=== PATIENT | male | born 1980 | race Caucasian/White ===

== ENCOUNTER 2022-02-17 11:42 | Emergency (ER) | payer OTHER, SELFPAY ==
[2022-02-17] VITALS (15 sets, daily range): BP systolic 108–136; BP diastolic 68–111; PULSE 75–133; RESP 12–22; TEMP 36.1; O2SAT 97–100; BMI 32.7
--- NOTE | 2022-02-17 12:39 | ED.ARRPALP ---
HPI - Arrhythmia/Palpitations General Chief Complaint: Arrhythmia/Palpitations Stated Complaint: lightheaded/heart racing/A-fib Time Seen by Provider: 02/17/22 12:17 History of Present Illness HPI narrative: This 41-year-old male comes in reporting some lightheadedness and palpitations that began last evening. He states that he has a history of SVT and had an ablation in the distant past. He does not report any chest pain, shortness of breath, or nausea or vomiting. He does not have any diaphoresis. He states that he is deconditioned and feels that his heart causes palpitations when he increases activity. He has had a stress test that was normal several years ago. Related Data Home Medications Medication Instructions Recorded Confirmed metoprolol succinate 25 mg mg PO 02/17/22 tablet,extended release 24 hr sertraline 50 mg tablet mg 02/17/22 Previous Rx's Medication Instructions Recorded apixaban 5 mg (74 tabs) tablets in See Rx Instructions .ROUTE 02/17/22 a dose pack ([employer] DVT-PE Treat .COMPLEX #74 ea 30D Start) carvedilol 3.125 mg tablet (Coreg) 3.125 mg PO BID #60 tab 02/17/22 Allergies Allergy/AdvReac Type Severity Reaction Status Date / Time No Known Drug Allergies Allergy Verified 02/17/22 11:58 Review of Systems Status of ROS: Reports: 10 or more systems reviewed and unremarkable except as noted in History and below Narrative: Constitutional: No fevers, no weight gain or loss. Eyes: No discharge. No vision changes. HENT: No congestion, no sore throat, no ear pain. Cardiovascular: No chest pain. Palpitations with lightheadedness. Respiratory: No shortness of breath, no wheezes, no cough. Gastrointestinal: No abdominal pain, no vomiting, no diarrhea. Genitourinary: No dysuria, no hematuria. Musculoskeletal: Normal range of motion. Skin: No rashes, no pruritis. Neurological: No dizziness, weakness, sensory change, speech change. Endo/Heme/Allergies: No bruising or bleeding. No polydipsia. Pysch: no suicidality, no anxiety, no insomnia. All other systems reviewed and are negative. [facility] Medical History (Updated 02/17/22 @ 14:26 by Bev Zhang MD) Arrhythmia Surgical History (Updated 02/17/22 @ 12:15 by Vero Jacobs RN) History of radiofrequency ablation procedure for cardiac arrhythmia Social History Smoking Status: Never smoker Do you use any of these nicotine containing products: None How often do you have a drink containing alcohol: 2-3 times a week How often do you have six or more drinks on one occasion: Weekly AUDIT-C Alcohol total score: 6 Non-prescribed substance use: denies use Exam Narrative: Exam Narrative: Constitutional: Well-developed, well-nourished, no acute distress. HEENT: Normocephalic, atraumatic. Neck: Normal range of motion. Nontender. Supple. Heart: Irregular. No murmurs. Normal rate. Intact distal pulses. Lungs: Clear to auscultation. No chest discomfort. No wheezes, rhonchi, or rales. Abdomen: Normal bowel sounds. Nontender. No rebound tenderness. Genitalia: Deferred. Back: No midline tenderness. Normal range of motion. Extremities: Normal range of motion. No injury. Skin: Intact. No rash. Warm. No erythema or pallor. Neurologic: No altered sensation. No weakness. Alert and oriented. Psychiatric: No suicidality. No anxiety or depression. No insomnia. Nursing notes and vitals signs are reviewed. Const: Vital Signs, click to edit/add: Vital Signs - 24 hr 02/17/22 11:58 02/17/22 12:00 02/17/22 12:30 Temperature 97 F L Pulse Rate [Apical ] 125 H 133 H 82 Respiratory Rate 22 18 17 Blood Pressure [Ri ght Upper Arm] 108/94 H 114/94 H 122/111 H Pulse Oximetry 97 97 98 02/17/22 13:00 02/17/22 13:30 Temperature Pulse Rate [Apical ] 84 85 Respiratory Rate 12 12 Blood Pressure [Ri ght Upper Arm] 125/95 H 125/85 Pulse Oximetry 97 98 Course Vital Signs Vital signs: Initial Vital Signs Temperature 97 F L 02/17/22 11:58 Temperature Source Temporal Artery Scan 02/17/22 11:58 Pulse Rate 125 H 02/17/22 11:58 Pulse Rhythm 02/17/22 11:58 Respiratory Rate 22 02/17/22 11:58 Blood Pressure 108/94 H 02/17/22 11:58 Blood Pressure Mean 98 02/17/22 11:58 Blood Pressure Position Supine 02/17/22 11:58 Pulse Oximetry 97 02/17/22 11:58 Oxygen Delivery Method 02/17/22 11:58 Vital Signs Temperature 97 F L 02/17/22 11:58 Pulse Rate 125 H 02/17/22 11:58 Respiratory Rate 22 02/17/22 11:58 Blood Pressure 108/94 H 02/17/22 11:58 Pulse Oximetry 97 02/17/22 11:58 Temperature 97 F L 02/17/22 11:58 Pulse Rate 85 02/17/22 13:30 Respiratory Rate 12 02/17/22 13:30 Blood Pressure 125/85 02/17/22 13:30 Pulse Oximetry 98 02/17/22 13:30 MDM - Arrhythmia/Palpitations MDM Narrative Medical decision making narrative: This patient comes in reporting some palpitations and lightheadedness. He has had dysrhythmia in the past which was diagnosed as supraventricular tachycardia for which she received an ablation. Today he arrives with evidence of atrial fibrillation which is rate controlled. These symptoms started last evening. He is a candidate for cardioversion. An IV was established where the patient did not receive any medications as he is rate controlled. Lab results returned with normal findings. He is preferring to have cardioversion. After acquiring informed consent he received 100 mg of propofol for adequate sedation. A 1 time cardioversion dose of 150 joules was administered which brought him back to normal sinus rhythm. Dr. Richardson was present to assist in this procedure as was respiratory therapist, Marielena. The patient received an oral dose of Eliquis and a prescription for the same. Repeat EKG shows normal sinus rhythm and a rate of around 70 beats per minute. Lab Data Labs: Lab Results 02/17/22 02/17/22 02/17/22 Range/Units 12:45 12:45 12:45 WBC 8.37 (4.50-11.00) K/uL RBC 5.31 (4.30-5.90) m/uL Hgb 16.0 (13.5-17.5) gm/dL Hct 46.9 (37.0-53.0) % MCV 88 (80-100) fL MCH 30 (26-34) pg MCHC 34 (32-36) gm/dL RDW Coeff of Carmine 12.0 (11.5-15.5) % Plt Count 318 (140-440) K/uL Neut % (Auto) 63.5 (42.0-72.0) % Lymph % (Auto) 24.1 (20-44) % [place] % (Auto) 8.4 (0.0-11.0) % Eos % (Auto) 3.3 (0.0-7.0) % Baso % (Auto) 0.5 (0.0-3.0) % Neut # (Auto) 5.31 (1.7-7.0) K/uL Lymph # (Auto) 2.02 (0.90-2.90) K/uL [place] # (Auto) 0.70 (0.00-0.90) K/UL Eos # (Auto) 0.28 (0.00-0.50) K/uL Baso # (Auto) 0.04 (0.00-0.30) K/uL Abs Immat Gran (auto) 0.02 (0.00-0.30) K/uL Sodium 141 (135-149) mmol/L Potassium 4.2 (3.6-5.1) mmol/L Chloride 108 (96-114) mmol/L Carbon Dioxide 29 (20-32) mmol/L BUN 14 (5-24) mg/dL Creatinine 1.0 (0.5-1.5) mg/dL Estimated Creat Clear 118.53 Glucose 102 (60-115) mg/dL Calcium 8.9 (8.4-10.6) mg/dL Magnesium 2.1 (1.5-2.6) mg/dL POC Troponin I 0.00 L (0.01-0.04) ng/ml ECG Data Attestation: I personally reviewed and interpreted this ECG as follows: Interpretation: Atrial fibrillation. Rate is 91 beats per minute. There are no ST or T-wave abnormalities. Repeat EKG after cardioversion shows normal sinus rhythm. There are no ST or T-wave changes. Discharge Plan Discharge Clinical Impression: Atrial fibrillation Patient Disposition: Home, Self-Care Condition: Stable Instructions: A-fib (Atrial Fibrillation) (ED) Additional Instructions: Per Dr. Cuellar's discharge. Take Eliquis as prescribed. Follow up with MD or return if worsening. A prescription for a low dose of Coreg is also provided which may be helpful in preventing similar occurrences. Prescriptions: New carvedilol [Coreg] 3.125 mg tablet 3.125 mg PO BID Qty: 60 2RF Rx Instructions: must administer with a meal/food Eliquis DVT-PE Treat 30D Start 5 mg (74 tabs) tablets,dose pack See Rx Instructions .ROUTE .COMPLEX Qty: 74 0RF Rx Instructions: orally per package directions No Action metoprolol succinate 25 mg tablet extended release 24 hr PO 0RF Label Comments: TAKE 1 TABLET BY MOUTH EVERY DAY sertraline 50 mg tablet 0RF Label Comments: TAKE 1 TABLET (50 MG) BY MOUTH ONCE DAILY. Follow Up/Referrals: Brendan Lujan MD [Primary Care Provider] - Stand Alone Forms: [facility] Info Instructions
[2022-02-17 12:57] LABS: Basophils Absolute Auto 0.04 K/uL (0.00-0.30); Basophils Percent Auto 0.5 % (0.0-3.0); Eosinophils Absolute Auto 0.28 K/uL (0.00-0.50); Eosinophils Percent Auto 3.3 % (0.0-7.0); Hematocrit 46.9 % (37.0-53.0); Immature Granulocytes Abs Auto 0.02 K/uL (0.00-0.30); Lymphocytes Absolute Auto 2.02 K/uL (0.90-2.90); Lymphocytes Percent Auto 24.1 % (20-44); Mean Corpuscular HGB Conc 34 gm/dL (32-36); Mean Corpuscular Hemoglobin 30 pg (26-34); Mean Corpuscular Volume 88 fL (80-100); Monocytes Percent Auto 8.4 % (0.0-11.0); Neutrophils Absolute Auto 5.31 K/uL (1.7-7.0); Neutrophils Percent Auto 63.5 % (42.0-72.0); Platelet Count* 318 K/uL (140-440); Red Blood Count 5.31 m/uL (4.30-5.90); White Blood Count* 8.37 K/uL (4.50-11.00)
[2022-02-17 12:58] LABS: Slide Review Reflex No
[2022-02-17 13:12] LABS: Chloride* 108 mmol/L (96-114); Potassium* 4.2 mmol/L (3.6-5.1); Sodium* 141 mmol/L (135-149)
[2022-02-17 13:15] LABS: Blood Urea Nitrogen* 14 mg/dL (5-24); Carbon Dioxide* 29 mmol/L (20-32); Est. Creatinine Clearance* 118.53; Estimated Glomerular Filt Rate 98.18; Glucose* 102 mg/dL (60-115)
[2022-02-17 13:16] LABS: Calcium* 8.9 mg/dL (8.4-10.6); Magnesium* 2.1 mg/dL (1.5-2.6)
[2022-02-17] MEDS: PROPOFOL 10 MG/ML INJ 200 MG IV (14:00)
--- NOTE | 2022-02-17 14:15 | ED.NURSE ---
Cardioversion started. Dr Richardson,Dr Cuellar and Marielena RT at bedside
--- NOTE | 2022-02-17 14:16 | ED.NURSE ---
Pt cardioverted with 150J.
--- NOTE | 2022-02-17 14:20 | ED_ITS ---
HPI - Arrhythmia/Palpitations General Time Seen by Provider: 14:10 Date Seen: 02/17/22 Chief Complaint: Arrhythmia/Palpitations Stated Complaint: lightheaded/heart racing/A-fib Time Seen by Provider: 02/17/22 12:17 History of Present Illness HPI narrative: Was asked by Dr. Cuellar to provide anesthesia with propofol fall so he could perform a synchronized cardioversion on Uriel. Respiratory therapy is also present. He is on appropriate supplemental oxygen, cardiac monitoring. IV has been established. I was in attendance and delivered 100 mg of propofol IV. This provided appropriate anesthesia. Please see Dr. Cuellar's notes for cardioversion and for the full formal ED visit. Appropriate cardiac monitoring and postanesthesia care monitoring was done. Patient will be discharged as per Dr. Telles's ED note. Related Data Home Medications Medication Instructions Recorded Confirmed metoprolol succinate 25 mg mg PO 02/17/22 tablet,extended release 24 hr sertraline 50 mg tablet mg 02/17/22 Allergies Allergy/AdvReac Type Severity Reaction Status Date / Time No Known Drug Allergies Allergy Verified 02/17/22 11:58 [facility] Medical History (Updated 02/17/22 @ 14:26 by Bev Zhang MD) Arrhythmia Surgical History (Updated 02/17/22 @ 12:15 by Vero Jacobs RN) History of radiofrequency ablation procedure for cardiac arrhythmia Social History Smoking Status: Never smoker Do you use any of these nicotine containing products: None How often do you have a drink containing alcohol: 2-3 times a week How often do you have six or more drinks on one occasion: Weekly AUDIT-C Alcohol total score: 6 Non-prescribed substance use: denies use Exam Const: Vital Signs, click to edit/add: Vital Signs - 24 hr 02/17/22 11:58 Temperature 97 F L Pulse Rate [Apical ] 125 H Respiratory Rate 22 Blood Pressure [Ri ght Upper Arm] 108/94 H Pulse Oximetry 97 Course Vital Signs Vital signs: Initial Vital Signs Temperature 97 F L 02/17/22 11:58 Temperature Source Temporal Artery Scan 02/17/22 11:58 Pulse Rate 125 H 02/17/22 11:58 Pulse Rhythm 02/17/22 11:58 Respiratory Rate 22 07/11/22 11:58 Blood Pressure 108/94 H 02/17/22 11:58 Blood Pressure Mean 98 02/17/22 11:58 Blood Pressure Position Supine 02/17/22 11:58 Pulse Oximetry 97 02/17/22 11:58 Oxygen Delivery Method 02/17/22 11:58 Vital Signs Temperature 97 F L 02/17/22 11:58 Pulse Rate 125 H 02/17/22 11:58 Respiratory Rate 22 02/17/22 11:58 Blood Pressure 108/94 H 02/17/22 11:58 Pulse Oximetry 97 02/17/22 11:58 Temperature 97 F L 02/17/22 11:58 Pulse Rate 125 H 02/17/22 11:58 Respiratory Rate 22 02/17/22 11:58 Blood Pressure 108/94 H 02/17/22 11:58 Pulse Oximetry 97 02/17/22 11:58 MDM - Arrhythmia/Palpitations Lab Data Labs: Lab Results 02/17/22 02/17/22 02/17/22 Range/Units 12:45 12:45 12:45 WBC 8.37 (4.50-11.00) K/uL RBC 5.31 (4.30-5.90) m/uL Hgb 16.0 (13.5-17.5) gm/dL Hct 46.9 (37.0-53.0) % MCV 88 (80-100) fL MCH 30 (26-34) pg MCHC 34 (32-36) gm/dL RDW Coeff of Carmine 12.0 (11.5-15.5) % Plt Count 318 (140-440) K/uL Neut % (Auto) 63.5 (42.0-72.0) % Lymph % (Auto) 24.1 (20-44) % [place] % (Auto) 8.4 (0.0-11.0) % Eos % (Auto) 3.3 (0.0-7.0) % Baso % (Auto) 0.5 (0.0-3.0) % Neut # (Auto) 5.31 (1.7-7.0) K/uL Lymph # (Auto) 2.02 (0.90-2.90) K/uL [place] # (Auto) 0.70 (0.00-0.90) K/UL Eos # (Auto) 0.28 (0.00-0.50) K/uL Baso # (Auto) 0.04 (0.00-0.30) K/uL Abs Immat Gran (auto) 0.02 (0.00-0.30) K/uL Sodium 141 (135-149) mmol/L Potassium 4.2 (3.6-5.1) mmol/L Chloride 108 (96-114) mmol/L Carbon Dioxide 29 (20-32) mmol/L BUN 14 (5-24) mg/dL Creatinine 1.0 (0.5-1.5) mg/dL Estimated Creat Clear 118.53 Glucose 102 (60-115) mg/dL Calcium 8.9 (8.4-10.6) mg/dL Magnesium 2.1 (1.5-2.6) mg/dL POC Troponin I 0.00 L (0.01-0.04) ng/ml Critical Care Time Critical Care Time Critical Care Time: No Discharge Plan Discharge Clinical Impression: Atrial fibrillation Patient Disposition: Home, Self-Care Condition: Stable Additional Instructions: Per Dr. Cuellar's discharge. Prescriptions: No Action metoprolol succinate 25 mg tablet extended release 24 hr PO 0RF Label Comments: TAKE 1 TABLET BY MOUTH EVERY DAY sertraline 50 mg tablet 0RF Label Comments: TAKE 1 TABLET (50 MG) BY MOUTH ONCE DAILY. Follow Up/Referrals: Brendan Lujan MD [Primary Care Provider] - Stand Alone Forms: [facility] Info Instructions Procedures Moderate Sedation Message Please read if using moderate sedation: Anesthesia with propofol used, see HPI above for note.
--- NOTE | 2022-02-17 14:22 | ED.NURSE ---
EKG showing normal sinus.
[2022-02-17] MEDS: APIXABAN 5 MG TABLET 10 MG PO (15:10)
== END 2022-02-17 15:38 | disposition home or self-care (01) ==
PROVIDERS: Emergency Provider Emergency Medicine Emergency Medical Services; PCP Surgery
DX: I48.91 Unspecified atrial fibrillation (principal)
CPT/HCPCS: 36415; 80048; 83735; 84484; 85025; 92960; 93005; 99152; 99156; 99281; 99285; A9270; J2704

== ENCOUNTER 2022-08-25 03:31 | Emergency (ER) | payer OTHER, SELFPAY ==
[2022-08-25] VITALS (8 sets, daily range): BP systolic 111–137; BP diastolic 93–106; PULSE 72–84; RESP 20; TEMP 36.3; O2SAT 97–98; BMI 32.7
--- NOTE | 2022-08-25 03:34 | ED.GENADULT ---
HPI - General Adult General Time Seen by Provider: 03:34 Date Seen: 08/25/22 Chief complaint: Chest Pain Stated complaint: Chest Pain Time Seen by Provider: 08/25/22 03:33 Source: patient, RN notes reviewed and old records reviewed Mode of arrival: ambulatory Limitations: no limitations History of Present Illness HPI narrative: 41-year-old who presents today with chest pain. Review of prior emergency department records shows patient was seen in February 2022 and at that time had atrial fibrillation which was successfully cardioverted. Patient also reports history of ablation for SVT. He says yesterday and this morning he is having brief episodes of aching or shooting pain in the left chest. He pinpoint this just under the left pectoralis muscle. No relieving or exacerbating factors, lasts about 30 seconds. No accompanying shortness of breath, nausea, or vomiting. He has had a cough for the last couple of days but no breathing difficulty, fevers. Related Data Home Medications Medication Instructions Recorded Confirmed metoprolol succinate 25 mg mg PO 02/17/22 tablet,extended release 24 hr sertraline 50 mg tablet mg 02/17/22 Previous Rx's Medication Instructions Recorded apixaban 5 mg (74 tabs) tablets in See Rx Instructions PO .COMPLEX 02/17/22 a dose pack (Eliquis DVT-PE Treat #74 ea 30D Start) carvedilol 3.125 mg tablet (Coreg) 3.125 mg PO BID #60 tabs 02/17/22 Allergies Allergy/AdvReac Type Severity Reaction Status Date / Time No Known Drug Allergies Allergy Verified 02/17/22 11:58 [facility] Medical History (Updated 08/25/22 @ 04:35 by Reji Christianson MD) Arrhythmia Surgical History (Updated 02/17/22 @ 12:15 by Vero Jacobs RN) History of radiofrequency ablation procedure for cardiac arrhythmia Social History Smoking Status: Never smoker Do you use any of these nicotine containing products: Other Second hand tobacco smoke exposure: No How often do you have a drink containing alcohol: 2-3 times a week How often do you have six or more drinks on one occasion: Weekly AUDIT-C Alcohol total score: 6 Non-prescribed substance use: denies use service: No Exam Narrative: Exam Narrative: General: Well-developed and well-nourished, no acute distress Head: Atraumatic and normocephalic Eyes: Pupils are equal reactive, extraocular motions intact, conjunctiva clear ENT: External nose and ears are normal, posterior pharynx without erythema or exudate Neck: No midline cervical tenderness, full spontaneous range of motion the neck, trachea midline, no adenopathy Heart: Regular rate and rhythm no murmurs or thrills Lungs: Clear to auscultation bilaterally without wheezes or crackles Abdomen: Soft, nontender, nondistended with active bowel sounds Musculoskeletal: No tenderness, deformity, or edema Neurologic: Awake, alert, and oriented x3, no gross focal neurologic deficits, cranial nerves intact as tested Psych: Mood and affect are appropriate Skin: No rashes Const: Vital Signs, click to edit/add: Vital Signs - 24 hr 08/25/22 03:40 08/25/22 03:55 08/25/22 04:00 Temperature 97.4 F L Pulse Rate 75 80 Pulse Rate [Pulse Oximeter] 81 Respiratory Rate 20 Blood Pressure Blood Pressure [Le ft Upper Arm] 137/106 H Pulse Oximetry 98 98 97 Oxygen Delivery Nm thod Room Air 08/25/22 04:04 08/25/22 04:09 Temperature Pulse Rate 73 76 Pulse Rate [Pulse Oximeter] Respiratory Rate Blood Pressure 122/102 H Blood Pressure [Le ft Upper Arm] Pulse Oximetry 98 97 Oxygen Delivery Me thod Course Course Hospital Course: 3:40 a.m. patient seen and examined, prior records reviewed. Patient presents with atypical chest pain yesterday and today, last about 30 seconds and nonradiating. He can not pinpoint 1 area where he has pain and there is no tenderness there. EKG is reassuring. Labs are ordered. We did discuss that this is not typical for acute coronary syndrome, however troponin will be ordered to evaluate for this. Consider CT PE protocol but no hypoxia, tachycardia, or pleuritic chest pain, PERC negative. Reevaluation(s) Reevaluation #1: Labs independently interpreted by me are reassuring including normal troponin, negative BNP, reassuring CBC and negative CRP. Chest x-ray is negative for any acute intrathoracic findings. Patient is stable for discharge with outpatient follow-up, consider cardiology given history of cardiac dysrhythmias Time: 04:32 Vital Signs Vital signs: Initial Vital Signs Temperature 97.4 F L 08/25/22 03:40 Temperature Source Temporal Artery Scan 08/25/22 03:40 Pulse Rate 81 08/25/22 03:40 Pulse Rhythm 08/25/22 03:40 Respiratory Rate 20 08/25/22 03:40 Blood Pressure 137/106 H 08/25/22 03:40 Blood Pressure Mean 116 08/25/22 03:40 Blood Pressure Position Semi-Fowlers 08/25/22 03:40 Pulse Oximetry 98 08/25/22 03:40 Oxygen Delivery Method 08/25/22 03:40 Vital Signs Temperature 97.4 F L 08/25/22 03:40 Pulse Rate 81 08/25/22 03:40 Respiratory Rate 20 08/25/22 03:40 Blood Pressure 137/106 H 08/25/22 03:40 Pulse Oximetry 98 08/25/22 03:40 Oxygen Delivery Method 08/25/22 03:40 Temperature 97.4 F L 08/25/22 03:40 Pulse Rate 76 08/25/22 04:09 Respiratory Rate 20 08/25/22 03:40 Blood Pressure 122/102 H 08/25/22 04:09 Pulse Oximetry 97 08/25/22 04:09 Oxygen Delivery Method 08/25/22 03:40 Medical Decision Making Lab Data Labs: Lab Results 08/25/22 08/25/22 08/25/22 Range/Units 03:50 03:50 03:50 WBC 6.24 (4.50-11.00) K/uL RBC 4.78 (4.30-5.90) m/uL Hgb 14.3 (13.5-17.5) gm/dL Hct 41.2 (37.0-53.0) % MCV 86 (80-100) fL MCH 30 (26-34) pg MCHC 35 (32-36) gm/dL RDW Coeff of Carmine 11.8 (11.5-15.5) % Plt Count 321 (140-440) K/uL Neut % (Auto) 53.1 (42.0-72.0) % Lymph % (Auto) 31.1 (20-44) % [place] % (Auto) 9.1 (0.0-11.0) % Eos % (Auto) 5.3 (0.0-7.0) % Baso % (Auto) 0.8 (0.0-3.0) % Neut # (Auto) 3.31 (1.7-7.0) K/uL Lymph # (Auto) 1.94 (0.90-2.90) K/uL [place] # (Auto) 0.60 (0.00-0.90) K/UL Eos # (Auto) 0.33 (0.00-0.50) K/uL Baso # (Auto) 0.05 (0.00-0.30) K/uL Sodium 139 (135-149) mmol/L Potassium 4.0 (3.6-5.1) mmol/L Chloride 109 (96-114) mmol/L Carbon Dioxide 24 (20-32) mmol/L BUN 13 (5-24) mg/dL Creatinine 0.9 (0.5-1.5) mg/dL Estimated Creat Clear 131.71 Estimated GFR 111 ml/min Glucose 107 (60-115) mg/dL Calcium 8.3 L (8.4-10.6) mg/dL C-Reactive Protein (0.5-1.0) mg/dL NT-Pro-B Natriuret Pep 27 pg/mL POC Troponin I 0.00 L (0.01-0.04) ng/ml 08/25/22 Range/Units 03:50 WBC (4.50-11.00) K/uL RBC (4.30-5.90) m/uL Hgb (13.5-17.5) gm/dL Hct (37.0-53.0) % MCV (80-100) fL MCH (26-34) pg MCHC (32-36) gm/dL RDW Coeff of Carmine (11.5-15.5) % Plt Count (140-440) K/uL Neut % (Auto) (42.0-72.0) % Lymph % (Auto) (20-44) % [place] % (Auto) (0.0-11.0) % Eos % (Auto) (0.0-7.0) % Baso % (Auto) (0.0-3.0) % Neut # (Auto) (1.7-7.0) K/uL Lymph # (Auto) (0.90-2.90) K/uL [place] # (Auto) (0.00-0.90) K/UL Eos # (Auto) (0.00-0.50) K/uL Baso # (Auto) (0.00-0.30) K/uL Sodium (135-149) mmol/L Potassium (3.6-5.1) mmol/L Chloride (96-114) mmol/L Carbon Dioxide (20-32) mmol/L BUN (5-24) mg/dL Creatinine (0.5-1.5) mg/dL Estimated Creat Clear Estimated GFR ml/min Glucose (60-115) mg/dL Calcium (8.4-10.6) mg/dL C-Reactive Protein < 0.5 L (0.5-1.0) mg/dL NT-Pro-B Natriuret Pep pg/mL POC Troponin I (0.01-0.04) ng/ml Discharge Plan Discharge Clinical Impression: Atypical chest pain Patient Disposition: Home w/ Parent or Adult Condition: Stable Instructions: Chest Pain (DC) Additional Instructions: Activity as tolerated. Follow-up with your primary care doctor and consider Cardiology consultation as well. Activity Level: No Restrictions Discharge Diet: Regular Prescriptions: No Action metoprolol succinate 25 mg tablet extended release 24 hr PO Label Comments: TAKE 1 TABLET BY MOUTH EVERY DAY sertraline 50 mg tablet Label Comments: TAKE 1 TABLET (50 MG) BY MOUTH ONCE DAILY. carvedilol [Coreg] 3.125 mg tablet 3.125 mg PO BID Qty: 60 2RF Rx Instructions: must administer with a meal/food Eliquis DVT-PE Treat 30D Start 5 mg (74 tabs) tablets,dose pack See Rx Instructions .ROUTE .COMPLEX Qty: 74 0RF Rx Instructions: orally per package directions Follow Up/Referrals: Brendan Lujan MD [Primary Care Provider] - Stand Alone Forms: [facility] Info Instructions
--- NOTE | 2022-08-25 03:35 | CRLHL7_ITS ---
For Patients: As a result of the Century Cures Act, medical imaging exams and procedure reports are released immediately into your electronic medical record. You may view this report before your referring provider. If you have questions, please contact your health care provider. INDICATION: Chest pain. TECHNIQUE: Chest 1 views. COMPARISON: None. FINDINGS: Cardiovasculature and mediastinum: Heart size and vasculature are normal in caliber and appearance. Lungs and pleural spaces: Lungs are clear. No sign of infiltrate or mass. No sign of pleural effusion. No pneumothorax. Bones and soft tissues: No significant findings. IMPRESSION: No acute or significant findings. Dictated by Orlando Nielsen MD @ 08/25/2022 4:43:55 AM (Electronically Signed)
[2022-08-25 04:00] LABS: Basophils Absolute Auto 0.05 K/uL (0.00-0.30); Basophils Percent Auto 0.8 % (0.0-3.0); Eosinophils Absolute Auto 0.33 K/uL (0.00-0.50); Eosinophils Percent Auto 5.3 % (0.0-7.0); Hematocrit 41.2 % (37.0-53.0); Hemoglobin* 14.3 gm/dL (13.5-17.5); Immature Granulocytes Abs Auto 0.04 K/uL (0.00-0.30); Immature Granulocytes Pct Auto 0.6 %; Lymphocytes Absolute Auto 1.94 K/uL (0.90-2.90); Lymphocytes Percent Auto 31.1 % (20-44); Mean Corpuscular HGB Conc 35 gm/dL (32-36); Mean Corpuscular Hemoglobin 30 pg (26-34); Mean Corpuscular Volume 86 fL (80-100); Monocytes Percent Auto 9.1 % (0.0-11.0); Neutrophils Absolute Auto 3.31 K/uL (1.7-7.0); Neutrophils Percent Auto 53.1 % (42.0-72.0); Platelet Count* 321 K/uL (140-440); RDW Coefficient of Variation % 11.8 % (11.5-15.5); Red Blood Count 4.78 m/uL (4.30-5.90); White Blood Count* 6.24 K/uL (4.50-11.00)
[2022-08-25 04:02] LABS: Slide Review Reflex No
[2022-08-25] MEDS: 0.9 % SODIUM CHLORIDE 1000 ml 1,000 ML IV (04:09)
[2022-08-25] MEDS: KETOROLAC 15 MG/ML inj IVP (04:09)
[2022-08-25 04:14] LABS: Chloride* 109 mmol/L (96-114); Sodium* 139 mmol/L (135-149)
[2022-08-25 04:17] LABS: Blood Urea Nitrogen* 13 mg/dL (5-24); Carbon Dioxide* 24 mmol/L (20-32); Creatinine* 0.9 mg/dL (0.5-1.5); Est. Creatinine Clearance* 131.71; Estimated Glomerular Filt Rate 111 ml/min; Glucose* 107 mg/dL (60-115)
[2022-08-25 04:18] LABS: Calcium* 8.3 mg/dL (8.4-10.6)
[2022-08-25 04:27] LABS: C Reactive Protein* < 0.5 mg/dL (0.5-1.0); NT Pro B Type NatriureticPept* 27 pg/mL
== END 2022-08-25 05:01 | disposition home or self-care (01) ==
PROVIDERS: Emergency Provider Family Medicine; PCP Surgery
DX: R07.89 Other chest pain (principal)
CPT/HCPCS: 36415; 71045; 80048; 83880; 84484; 85025; 86140; 93005; 96361; 96374; 99284; 99285; J1885; J7030

== ENCOUNTER 2023-04-11 03:37 | Emergency (ER) | payer OTHER, SELFPAY ==
[2023-04-11 03:48] VITALS: BP 161/107; PULSE 80; RESP 16; TEMP 36.2; O2SAT 98; BMI 32.7
[2023-04-11 04:02] LABS: Appearance Urine Clear (Clear); Bilirubin Urine Negative (Negative); Blood Urine 3+ (Negative); Color Urine Yellow (Yellow); Glucose Urine Negative (Negative); Ketones Urine Negative (Negative); Leukocyte Esterase Urine Negative (Negative); Nitrite Urine Negative (Negative); Protein Urine Negative (Negative); Specific Gravity Urine >= 1.030 (1.000-1.030); Urobilinogen Urine 0.2 (0.2-1.0); pH Urine 5.5 (5.0-8.5)
--- NOTE | 2023-04-11 04:05 | ED_ITS ---
HPI - General Adult General Chief complaint: Flank Pain Stated complaint: pain on R front side Time Seen by Provider: 04/11/23 03:55 Source: patient and family Mode of arrival: ambulatory Limitations: no limitations History of Present Illness HPI narrative: 42-year-old male presents to the emergency department with right lower quadrant abdominal pain since about 8:00 p.m. which is 8 hours prior to arrival. No fe vers, no trauma or injury. Little bit of burning with urination also. Nausea started about a 1/2 hour ago but no payam vomiting. Symptoms initially started mildly and are more constant, not crampy or colicky. No changes in bowel habits. Pain can be reproduced with palpation, far right lower groin area and radiating into the penis. No prior history of similar symptoms. Has not tried taking any medication to help with his symptoms. No back pain. Denies prior history of abdominal surgery. Past medical history, he denies but I can see from the records that he has had a previous history of AFib. It looks like he may have had an ablation at some point as well. He is also looks like he has had a pulmonary embolism is not taking any anticoagulants. He denies use of any medications currently. He is nonsmoker, did have 4 beers last night. ROS is notable for the abdominal symptoms as above, otherwise denies times 12 systems. Related Data Allergies Allergy/AdvReac Type Severity Reaction Status Date / Time Sulfa (Sulfonamide Allergy Unknown Verified 04/11/23 03:51 Antibiotics) [facility] Medical History Arrhythmia ?I49.9 - Cardiac arrhythmia, unspecified (ICD-10) Surgical History History of radiofrequency ablation procedure for cardiac arrhythmia ?Z98.890 - Other specified postprocedural states (ICD-10) Social History Smoking Status: Never smoker Do you use any of these nicotine containing products: Other Second hand tobacco smoke exposure: No How often do you have a drink containing alcohol: 2-3 times a week How often do you have six or more drinks on one occasion: Weekly AUDIT-C Alcohol total score: 6 Non-prescribed substance use: denies use service: No Exam Const: Vital Signs, click to edit/add: Vital Signs - 24 hr 04/11/23 03:48 Temperature 97.1 F L Pulse Rate [Left P ulse Oximeter] 80 Respiratory Rate 16 Blood Pressure [Ri ght Upper Arm] 161/107 H Pulse Oximetry 98 Oxygen Delivery Me thod Room Air Documenting provider has reviewed patient's vital signs: yes Common normals: no apparent distress General appearance: cooperative and well kempt Other: Good historian. HENMT: Common normals: normocephalic Head and scalp: normocephalic Face and sinus: normal facial exam Mouth: oral and palatal mucosa normal Throat: posterior oropharynx normal Eye: Common normals: conjunctivae normal General eye: normal appearance of both eyes Conjunctiva: conjunctiva(e) normal Neck & C-Spine: Common normals: full ROM and no lymphadenopathy Resp: Common normals: normal respiratory effort, no use of accessory muscles and clear to auscultation bilaterally Effort & inspection: able to speak in complete sentences Auscultation: clear to auscultation bilaterally Cardio: Common normals: regular rate, regular rhythm, S1 normal heart sound, S2 normal heart sound and no murmurs Rate: regular rate Rhythm: regular rhythm Heart sounds: S1 normal and S2 normal GI: Common normals: Normal to inspection, nondistended, normoactive bowel sounds present, soft to palpation, no hepatosplenomegaly and no masses Palpation: soft and no hepatosplenomegaly Other: Right lower quadrant is tender to palpation, inching down towards the inguinal area but there is no bulge or obvious hernia. No rebound tenderness or guarding. : Common normals: no CVA tenderness Bladder/kidney exam: no CVA tenderness Back & Pelvis: Common normals: no CVA tenderness Extremity: Common normals: normal to inspection and normal capillary refill Neuro: Speech: speech normal Gait (neuro): normal gait Motor exam: no movement abnormalities noted Psych: Appearance: well kempt Activity/motor behavior: appropriate eye contact Mood and affect: euthymic mood Insight: insight good Judgement: judgment good Skin: Common normals: no rashes or lesions noted General skin exam: no rashes or lesions noted Course Course Hospital Course: Differential diagnosis including kidney stone, pancreatitis, colitis, appendicitis, urinary infection, among others. Recommended IV insertion, 15 mg of Toradol, 4 mg of Zofran, urinalysis initially. I think this is most likely an appendicitis but cannot exclude a kidney stone. I am going to await a urinalysis to determine if there is any blood present. If there is blood present I would likely pursue a CT without contrast rather than a contrast containing CT which would be better for appendicitis. Basic labs including CBC, comprehensive metabolic panel, amylase, CRP recommended. Await findings. Reevaluation(s) Time of Reevaluation #1: 05:19 Reevaluation #1: Patient had marked improvement in his pain with the Toradol. Lab studies and CT findings discussed with patient. 4 mm stone in bladder with signs of recently passed stone in the ureter and some mild hydronephrosis. All labs are reassuring. Patient is discharged on Tylenol and ibuprofen to take [id number] at home, he does not need to strain his urine. Alarm symptoms such as high fevers, persistent bleeding reviewed as indications to come back to ED. He verbalizes understanding and agreement. All questions answered. Vital Signs Vital signs: Initial Vital Signs Temperature 97.1 F L 04/11/23 03:48 Temperature Source Temporal Artery Scan 04/11/23 03:48 Pulse Rate 80 04/11/23 03:48 Respiratory Rate 16 04/11/23 03:48 Blood Pressure 161/107 H 04/11/23 03:48 Blood Pressure Mean 125 H 04/11/23 03:48 Blood Pressure Position Semi-Fowlers 04/11/23 03:48 Pulse Oximetry 98 04/11/23 03:48 Oxygen Delivery Method Room Air 04/11/23 03:48 Vital Signs Temperature 97.1 F L 04/11/23 03:48 Pulse Rate 80 04/11/23 03:48 Respiratory Rate 16 04/11/23 03:48 Blood Pressure 161/107 H 04/11/23 03:48 Pulse Oximetry 98 04/11/23 03:48 Oxygen Delivery Method Room Air 04/11/23 03:48 Temperature 97.1 F L 04/11/23 03:48 Pulse Rate 80 04/11/23 03:48 Respiratory Rate 16 04/11/23 03:48 Blood Pressure 161/107 H 04/11/23 03:48 Pulse Oximetry 98 04/11/23 03:48 Oxygen Delivery Method Room Air 04/11/23 03:48 Medical Decision Making Lab Data Lab results reviewed: Yes I reviewed the patient's lab results Lab results narrative: Labs look great with the exception of the hematuria Labs: Lab Results 04/11/23 04/11/23 Range/Units 03:52 03:59 WBC 7.25 (4.50-11.00) K/uL RBC 5.29 (4.30-5.90) m/uL Hgb 15.7 (13.5-17.5) gm/dL Hct 45.9 (37.0-53.0) % MCV 87 (80-100) fL MCH 30 (26-34) pg MCHC 34 (32-36) gm/dL RDW Coeff of Carmine 11.6 (11.5-15.5) % Plt Count 281 (140-440) K/uL Neut % (Auto) 52.4 (42.0-72.0) % Lymph % (Auto) 33.0 (20-44) % Blaine % (Auto) 9.8 (0.0-11.0) % Eos % (Auto) 3.4 (0.0-7.0) % Baso % (Auto) 0.6 (0.0-3.0) % Neut # (Auto) 3.80 (1.7-7.0) K/uL Lymph # (Auto) 2.39 (0.90-2.90) K/uL Blaine # (Auto) 0.70 (0.00-0.90) K/UL Eos # (Auto) 0.25 (0.00-0.50) K/uL Baso # (Auto) 0.04 (0.00-0.30) K/uL Abs Immat Gran (auto) 0.06 (0.00-0.30) K/uL Imm/Tot Granulo (auto) 0.8 % Sodium 138 (135-149) mmol/L Potassium 3.9 (3.6-5.1) mmol/L Chloride 102 (96-114) mmol/L Carbon Dioxide 27 (20-32) mmol/L Anion Gap 9 (7-15) mEq/L BUN 13 (5-24) mg/dL Creatinine 1.1 (0.5-1.5) mg/dL Estimated Creat Clear 106.69 Estimated GFR 87 ml/min Glucose 81 (60-115) mg/dL Calcium 9.2 (8.4-10.6) mg/dL Total Bilirubin 0.6 (0.1-1.5) mg/dL AST 28 (12-35) U/L ALT 35 (4-50) U/L Alkaline Phosphatase 55 (40-150) U/L C-Reactive Protein < 0.5 L (0.5-1.0) mg/dL Total Protein 8.4 H (6.0-8.3) g/dL Albumin 4.9 (3.3-5.0) g/dL Amylase 56 (18-89) U/L Urine Color Yellow (Yellow) Urine Appearance Clear (Clear) Urine pH 5.5 (5.0-8.5) Ur Specific [place] >= 1.030 (1.000-1.030) Urine Protein Negative (Negative) Urine Glucose (UA) Negative (Negative) Urine Ketones Negative (Negative) Urine Blood 3+ A (Negative) Urine Nitrite Negative (Negative) Urine Bilirubin Negative (Negative) Urine Urobilinogen 0.2 (0.2-1.0) Ur Leukocyte Esterase Negative (Negative) Urine RBC 25-50 A (0-2) Urine WBC 10-25 A (0-5) Ur Squamous Epith Cells None (None-Few) Urine Bacteria Few A (None) Urine Mucus Few A (None) Imaging Data CT scan - abdomen: Attestation: I have reviewed the pertinent imaging results. My impression: 4-5 mm kidney stone in the bladder, hydronephrosis on right side Radiologist's impression: IMPRESSION: 4 mm stone in the dependent bladder lumen (series 2; image 142) with associated right mild hydroureteronephrosis and periureteral fat stranding, the latter features consistent with obstructive uropathy due to a recently passed stone. Recommend clinical correlation as to any findings to indicate an upper urinary tract infection. There is a punctate nonobstructing left lower pole nephrolith (4; 97). No radiopaque urolith is otherwise identified involving the kidneys or upper urinary tracts. Discharge Plan Discharge Clinical Impression: Kidney stone Patient Disposition: Home w/ Parent or Adult Condition: Improved Instructions: Kidney Stones (ED) Additional Instructions: As we discussed, you have a 4 mm kidney stone that has passed from the right ureter into the bladder. It can actually stay in the bladder for up to a couple of weeks. There are no signs of infection. Your given a medication that is similar to ibuprofen and it has worked well for the pain which is great. You may continue taking ibuprofen 600 mg every 6 hours as needed for pain. Your next eligible dose would be around 10:00 a.m.. It is also okay to use Tylenol and to alternate between the 2. You may use the Tylenol 1000 mg every 6 hours, alternating between the 2 up to every 3 hours if needed. Drink lots of fluids, especially water and no alcohol for the next few days. This will help flush the stone out of your body. There is no way to predict when this stone will pass as it can just sit comfortably in the bladder for quite some time. It is normal to has some discomfort in the lower abdomen from the stone having scratched the tissues on the way down. You should come back to the emergency department if your peeing excessive amounts of heavy blood that is not stopping and or you start running high fevers or seem very ill. You do not need to follow-up with the urologist or your primary care provider unless things are still very painful after 1 week. You may return to unrestricted work. Activity Level: No Restrictions Discharge Diet: Regular Follow Up/Referrals: Brendan Lujan MD [Primary Care Provider] - Stand Alone Forms: [employer] Info Instructions
[2023-04-11] MEDS: ONDANSETRON 2 MG/ML inj 4 MG IVP (04:10)
[2023-04-11] MEDS: KETOROLAC 15 MG/ML inj IVP (04:10)
[2023-04-11 04:11] LABS: Bacteria Urine Few; Mucus Urine Few; RBC Urine 25-50 (0-2)
--- NOTE | 2023-04-11 04:19 | CRLHL7_ITS ---
For Patients: As a result of the 21st Century Cures Act, medical imaging exams and procedure reports are released immediately into your electronic medical record. You may view this report before your referring provider. If you have questions, please contact your health care provider. INDICATION: Right-sided pain. TECHNIQUE: CT abdomen and pelvis without contrast. COMPARISON: None available. FINDINGS: The study is performed without intravenous contrast. This limits sensitivity for detection of abdominal/pelvic pathology, including pathology of the vasculature (specifically evaluation of possible vascular thromboembolism, arterial dissection, stenosis or occlusion), the integrity of the bowel (including bowel wall enhancement) and solid viscera (including detection of focal lesions within the viscera). If there is ongoing concern for otherwise occult pathology such as this, based on the clinical presentation of the patient, consider the risk/benefit of a study with intravenous contrast. Lower chest: Unremarkable. Liver: Normal in size and attenuation. No suspicious masses. Gallbladder and bile ducts: No stones or inflammation. No biliary dilatation. Pancreas: Unremarkable. No mass or inflammation. Spleen: Normal in size. No masses. Adrenal glands: Normal in size. No nodules. Kidneys: 4 mm stone in the dependent bladder lumen (series 2; image 142) with associated right mild hydroureteronephrosis and periureteral fat stranding, the latter features consistent with obstructive uropathy due to a recently passed stone. Recommend clinical correlation as to any findings to indicate an upper urinary tract infection. Punctate nonobstructing left lower pole nephrolith (4; 97). No radiopaque urolith is otherwise identified involving the kidneys or upper urinary tracts. GI tract: Unremarkable. Normal in caliber. No sign of mass or inflammation. Normal appendix. Vasculature: Abdominal aorta is normal in caliber. Lymph nodes: No lymphadenopathy. Peritoneum/Abdominal Wall: Unremarkable. No sign of mass or infiltration. No free air or significant free fluid. Pelvis: Unremarkable. No pelvic masses. Bones: Unremarkable for age. IMPRESSION: 4 mm stone in the dependent bladder lumen (series 2; image 142) with associated right mild hydroureteronephrosis and periureteral fat stranding, the latter features consistent with obstructive uropathy due to a recently passed stone. Recommend clinical correlation as to any findings to indicate an upper urinary tract infection. There is a punctate nonobstructing left lower pole nephrolith (4; 97). No radiopaque urolith is otherwise identified involving the kidneys or upper urinary tracts. Please note that all CT scans at this facility use dose modulation, iterative reconstruction, and/or weight-based dosing when appropriate to reduce radiation dose to as low as reasonably achievable. Dictated by Yann Alonzo MD @ 04/11/2023 5:07:51 AM (Electronically Signed)
[2023-04-11 04:21] LABS: Hematocrit 45.9 % (37.0-53.0); Hemoglobin* 15.7 gm/dL (13.5-17.5); Mean Corpuscular HGB Conc 34 gm/dL (32-36); Mean Corpuscular Hemoglobin 30 pg (26-34); Mean Corpuscular Volume 87 fL (80-100); Monocytes Percent Auto 9.8 % (0.0-11.0); Neutrophils Percent Auto 52.4 % (42.0-72.0); Platelet Count* 281 K/uL (140-440); RDW Coefficient of Variation % 11.6 % (11.5-15.5); Red Blood Count 5.29 m/uL (4.30-5.90); White Blood Count* 7.25 K/uL (4.50-11.00)
[2023-04-11 04:22] LABS: Basophils Absolute Auto 0.04 K/uL (0.00-0.30); Basophils Percent Auto 0.6 % (0.0-3.0); Eosinophils Absolute Auto 0.25 K/uL (0.00-0.50); Eosinophils Percent Auto 3.4 % (0.0-7.0); Immature Granulocytes Abs Auto 0.06 K/uL (0.00-0.30); Immature Granulocytes Pct Auto 0.8 %; Lymphocytes Absolute Auto 2.39 K/uL (0.90-2.90)
[2023-04-11 04:25] LABS: Slide Review Reflex No
[2023-04-11 04:34] LABS: Albumin* 4.9 g/dL (3.3-5.0); Chloride* 102 mmol/L (96-114); Sodium* 138 mmol/L (135-149)
[2023-04-11 04:35] LABS: Potassium* 3.9 mmol/L (3.6-5.1)
[2023-04-11 04:38] LABS: Alanine Aminotransferase* 35 U/L (4-50); Alkaline Phosphatase* 55 U/L (40-150); Amylase* 56 U/L (18-89); Anion Gap 9 mEq/L (7-15); Aspartate Amino Transferase* 28 U/L (12-35); Bilirubin Total* 0.6 mg/dL (0.1-1.5); Blood Urea Nitrogen* 13 mg/dL (5-24); Calcium* 9.2 mg/dL (8.4-10.6); Carbon Dioxide* 27 mmol/L (20-32); Creatinine* 1.1 mg/dL (0.5-1.5); Est. Creatinine Clearance* 106.69; Estimated Glomerular Filt Rate 87 ml/min; Glucose* 81 mg/dL (60-115); Total Protein* 8.4 g/dL (6.0-8.3)
[2023-04-11 04:41] LABS: C Reactive Protein* < 0.5 mg/dL (0.5-1.0)
== END 2023-04-11 05:30 | disposition home or self-care (01) ==
PROVIDERS: Emergency Provider Family Medicine; PCP Surgery
DX: N20.0 Calculus of kidney (principal)
CPT/HCPCS: 36415; 74176; 80053; 81001; 81003; 82150; 85025; 86140; 87086; 96374; 96375; 99284; J1885; J2405